=== PATIENT | male | born 1975 | race Caucasian/White ===

== ENCOUNTER → 2018-12-24 | Outpatient (CLI) | payer BC ==
--- NOTE | 2018-12-24 13:03 | Diagnostic Imaging Report ---
EXAMINATION: Scoliosis, standing. INDICATION: Scoliosis. AP standing views of the thoracic and lumbar spine were obtained. There are no prior studies available for comparison. FINDINGS: There is levoscoliosis of the thoracolumbar junction. Using the Bustillo method of analysis with the superior endplate of T11 and the inferior endplate of L4 as landmarks, the measured angle of scoliosis is 21 degrees, +/- 2-3 degrees. There is also dextroscoliosis of the lower thoracic spine. Using the superior endplate of T5 and the inferior endplate of T12, the measured angle of scoliosis is 15 degrees, +/- 2-3 degrees. There is no acute bony abnormality noted. IMPRESSION: 1. There is levoscoliosis of the thoracolumbar junction and dextroscoliosis of the lower thoracic spine. The measured angles of scoliosis respectively are 21 and 15 degrees, +/- 2-3 degrees. 2. There is no acute bony abnormality noted. Dictated by: Dictated on workstation # [id number]
== END ==
LOC: RAD 09:15
PROVIDERS: ATTEND Nurse Practitioner
DX: M41.35 Thoracogenic scoliosis, thoracolumbar region (principal)
CPT/HCPCS: 72081

== ENCOUNTER → 2019-02-09 | Outpatient (CLI) | payer BC | LOC: CARD 11:56 | PROVIDERS: ATTEND Nurse Practitioner | DX: R29.91 Unspecified symptoms and signs involving the musculoskeletal system (principal) | CPT/HCPCS: 93306 ==

== ENCOUNTER 2019-03-05 13:45 | Outpatient (RCR) | payer BC | END 2019-03-05 15:17 | disposition home or self-care (01) | PROVIDERS: ATTEND Orthopaedic Surgery Orthopaedic Trauma | DX: M47.896 Other spondylosis, lumbar region (principal) ==